=== PATIENT | male | born 1945 | race Caucasian/White ===

== ENCOUNTER 2019-12-30 06:25 | Day surgery (SDC) | payer OTHER, SELFPAY ==
[~2019-12-30] VITALS: Ht 177.8 cm; Wt 117.9 kg
[2019-12-30] MEDS ORDERED: SIMETHICONE 40 MG/0.6 ML ML ONE (07:41)
[2019-12-30] MEDS ORDERED: fentaNYL CITRATE/PF 100 MCG/2 ML AMP ONE (07:49)
[2019-12-30] MEDS ORDERED: MIDAZOLAM HCL 5 MG/5 ML VIAL ONE (07:50)
[2019-12-30] MEDS ORDERED: DIPHENHYDRAMINE INJ 50 MG/ML VIAL ONE (09:35)
[2019-12-30 11:10] VITALS: BP_SYST 114
== END 2019-12-30 09:40 | disposition home or self-care (01) ==
LOC: SDS 06:25 → SMU 06:25 → SDS 09:40
PROVIDERS: ATTEND Internal Medicine
DX: Z09 Encounter for follow-up examination after completed treatment for conditions other than malignant neoplasm (principal); D12.0 Benign neoplasm of cecum; D12.3 Benign neoplasm of transverse colon; D12.4 Benign neoplasm of descending colon; K57.30 Diverticulosis of large intestine without perforation or abscess without bleeding; K64.8 Other hemorrhoids; Z87.891 Personal history of nicotine dependence; Z80.0 Family history of malignant neoplasm of digestive organs; I25.10 Atherosclerotic heart disease of native coronary artery without angina pectoris; I10 Essential (primary) hypertension; Z86.010 Personal history of colon polyps; Z20.828 Contact with and (suspected) exposure to other viral communicable diseases
CPT/HCPCS: 45380; 45385; 88305; 99152; 99153; G0378; J1200; J2250; J3010; U0003